=== PATIENT | female | born 1945 | race Caucasian/White ===

== ENCOUNTER 2016-11-09 11:00 | Inpatient (IN) | payer MEDICARE, OTHER ==
[~2016-11-09] VITALS: Ht 154.9 cm; Wt 129.3 kg
--- NOTE | ~2016-11-09 | DS ---
PATIENT'S NAME: ROGER MUÑOZ [facility] AGE: 71 Y [address] ROOM: [place] [address] LOCATION: [facility] ADMIT DATE: 11/16/2016 Discharge Summary DISCHARGE DATE: 11/18/2016 FAMILY PHYSICIAN: Jez Mascorro MD ATTENDING PHYSICIAN: Sung Mcnair PRIMARY DIAGNOSIS: Degenerative joint disease of the left knee. SECONDARY DIAGNOSES: 1. Gastroesophageal reflux disease. 2. Hyperlipidemia. 3. Morbid obesity. 4. Hypertension. 5. Chronic kidney disease, stage 3. 6. Hyperparathyroidism. 7. Obstructive sleep apnea. 8. Osteoporosis. PROCEDURE PERFORMED: Left total knee arthroplasty. HISTORY: The patient is a 71-year-old female, who presents with advanced left knee degenerative joint disease and associated severely compromised activities of daily living. The patient has decided to proceed with total knee arthroplasty after having been thoroughly counseled regarding the risks, benefits, limitations and alternatives. Please refer to the outpatient clinic notes and admission history and physical for this patient. HOSPITAL COURSE: The patient underwent a left total knee arthroplasty on 11/16/2016 without complications. Spinal anesthesia plus adductor canal block plus periarticular local anesthesia was utilized. The patient received 24 hours of perioperative prophylactic antibiotics and remained hemodynamically stable, neurovascularly intact throughout the entire hospital course. The postoperative prophylactic deep venous thrombosis prophylaxis consisted of Lovenox 30 mg, early mobilization and pneumatic compression devices. Daily physical therapy for gait training, transfer training range of motion and quadriceps isometric exercises were received. The patient progressed well in physical therapy. On the date of discharge, 11/18/2016, the incision at the knee was healing well and showed no signs of infection. DISPOSITION: Home. DISCHARGE ACTIVITY: The patient is to bear weight as tolerated with range of motion and quadriceps isometric exercises as instructed. The operative extremity is to be elevated at least 90% of the day. There is to be sterile 4x4 gauze dressings to the incision daily. Dr. Mcnair is to be notified PATIENT'S NAME: ROGER MUÑOZ [facility] AGE: 71 Y [address] ROOM: [place] [address] LOCATION: [facility] ADMIT DATE: 11/16/2016 Discharge Summary DISCHARGE DATE: 11/18/2016 FAMILY PHYSICIAN: Jez Mascorro MD ATTENDING PHYSICIAN: Sung Mcnair immediately if there is any increased pain, fevers, chills erythema or drainage. The patient was told to perform no range of motion exercises until the follow-up appointment. DISCHARGE MEDICATIONS: 1. Lovenox 30 mg subcu twice daily for 14 days for postoperative DVT prophylaxis. 2. [place] 5/325 mg 1 to 2 tabs p.o. every 4 hours p.r.n. for pain. 3. She was then instructed to continue all her pre-admission medications as directed by her internal medicine physician. FOLLOWUP: Followup appointment is to be with Dr. Mcnair's office on 11/23/2016 for her initial postoperative evaluation with x-rays of the left knee and staple removal at that time. WILFREDO MCGARRY PA-C FOR SUNG MCNAIR MD SMW/modl /[id number] d: 11/23/16 0045 t: 11/23/16 0829, DISCHARGE SUMMARY
--- NOTE | ~2016-11-09 | OR ---
PATIENT'S NAME: ROGER MUÑOZ [facility] AGE: 71 Y [address] ROOM: [place] [address] LOCATION: [facility] ADMIT DATE: 11/16/2016 OR/Procedure Report DISCHARGE DATE: FAMILY PHYSICIAN: Jez Mascorro MD ATTENDING PHYSICIAN: SUNG MCNAIR SURGEON: Sung Mcnair MD WHIP SAWYER: 1. SHABNAM Guzman. 2. Deepak Davila CST/MANAGER PROJECT. DATE OF PROCEDURE: 11/16/2016 PRE-OP DIAGNOSES: 1. Primary degenerative joint disease, left knee. 2. Obesity (5 feet 1 inch tall and 127.3 kg). POST-OP DIAGNOSES: 1. Primary degenerative joint disease, left knee. 2. Obesity (5 feet 1 inch tall and 127.3 kg). OPERATION: Left total knee arthroplasty with computer navigation. ANESTHESIA: Spinal anesthesia plus adductor canal block plus periarticular local anesthesia (ropivacaine with epinephrine and Toradol). ESTIMATED BLOOD LOSS: Less than 20 mL. DRAIN: None. SPECIMEN: None. COMPLICATIONS: None. IMPLANT SYSTEM: Patrick Triathlon Size 2 left posterior stabilized femoral component. Size 1 universal modular tibial baseplate. An 11 mm size 1 posterior stabilized X3 tibial polyethylene insert. A 29 mm oval X3 patella component (triple pegged). INDICATIONS FOR SURGERY: Roger Muñoz is a 71-year-old female who presents with advanced left knee degenerative joint disease and associated severely compromised activities of daily living. The patient has decided to proceed with knee replacement after having been thoroughly counseled regarding the associated risks, benefits, and limitations. We have specifically reviewed the risks and implications of infection, deep venous thrombosis, pulmonary embolism, mortality, neurovascular complications, blood transfusion (and associated potential for disease transmission or transfusion reaction), PATIENT'S NAME: ROGER MUÑOZ [facility] AGE: 71 Y [address] ROOM: [place] [address] LOCATION: [facility] ADMIT DATE: 11/16/2016 OR/Procedure Report DISCHARGE DATE: FAMILY PHYSICIAN: Jez Mascorro MD ATTENDING PHYSICIAN: SUNG MCNAIR stiffness, instability, mechanical deterioration of the components (due to wear and or loosening), and the potential need for revision. We have also emphasized the importance of active involvement and compliance with post- operative physical therapy as a means of optimizing range of motion and functional recovery. Informed consent has been granted. DESCRIPTION OF PROCEDURE: The patient was positioned supine after administration of anesthesia and prophylactic antibiotics. A well-padded pneumatic tourniquet was placed around the left proximal thigh, and the left lower extremity was prepped and draped with vigilant sterile technique. The patient's name as well as the intended operative side and procedure were confirmed with a verbal time-out involving myself, the circulating nurse, the scrub nurse, and the anesthesiologist. Examination under anesthesia demonstrated well-healed inferomedial and inferolateral arthroscopy portal scars. There was a large effusion. There was no erythema. There was no abnormal warmth. There was a very large soft- tissue envelope surrounding the knee, thigh, and calf. This created a significant barrier to full flexion of the knee secondary to impingement between the posterior calf and posterior thigh soft tissues. Range of motion under anesthesia was from full extension to 120 degrees of flexion. There was no ligamentous insufficiency. The left lower extremity was elevated and exsanguinated with an Esmarch wrap, and the pneumatic tourniquet was inflated to 300mmHg. The knee was approached through a longitudinal midline incision. A medial parapatellar arthrotomy was performed and the patella was everted. Examination of the joint space demonstrated a large amount of benign-appearing translucent synovial fluid. There was generalized nonproliferative synovitis. There were no loose bodies. The cruciate ligaments were intact. There was full-thickness loss of articular cartilage involving over 50% of the medial femoral condyle and a 1 x 2 cm diameter region of the medial tibial plateau. There were mild grade 2 degenerative changes at the lateral femoral condyle. There was high-grade partial-thickness articular cartilage loss extending transversely across the equator of the patella. There were intermixed grade 3 and grade 4 degenerative changes at the medial 2/3rd of the femoral trochlea. There was extensive complex degenerative tearing involving the anterior half of the medial meniscus. The lateral meniscus was intact. There were mild grade 3 degenerative changes involving the medial half of the lateral tibial plateau including deep fissuring of the articular cartilage at the medial half of the lateral tibial plateau. Remnants of the menisci and cruciate ligaments were excised. The tydy navigation femoral tracker was pinned in place at the distal aspect PATIENT'S NAME: ROGER MUÑOZ [facility] AGE: 71 Y [address] ROOM: [address] [address] LOCATION: [facility] ADMIT DATE: 11/16/2016 OR/Procedure Report DISCHARGE DATE: FAMILY PHYSICIAN: Jez Mascorro MD ATTENDING PHYSICIAN: SUNG MCNAIR of the femoral trochlea. Absence of motion between the femur and the tracking device was confirmed manually and visually. Femoral osseous landmarks were obtained in order to calibrate the computer navigation system. Landmarks included the center of rotation of the ipsilateral hip, the center-point of the distal femur, the femoral AP axis, 57 points on the medial femoral condyle articular surface, and 57 points on the lateral femoral condyle articular surface. The [employer] computer navigation system was subsequently utilized to position the distal femoral resection block such that the distal femoral resection was performed perfectly perpendicular to the femoral mechanical axis. The distal femoral resection was performed with a [employer] oscillating saw. The [employer] computer navigation tibial tracker was pinned in place at the anterior aspect of the tibial plateau. Absence of motion between the tibia and the tracking device was confirmed manually and visually. Tibial osseous landmarks were obtained in order to calibrate the computer navigation system. Landmarks included the center-point of the tibial plateau, the AP tibial axis, 57 points on the medial tibial plateau articular surface, 57 points on the lateral tibial plateau articular surface, the medial malleolus, and the lateral malleolus. The [employer] computer navigation system was subsequently utilized to position the proximal tibial resection block such that the proximal tibial resection was performed perfectly perpendicular to the tibial mechanical axis. The proximal tibial resection was performed with a [employer] Precision oscillating saw. Perpendicularity of the tibial resection with respect to the tibial shaft axis was reconfirmed by inserting a spacer- block attached to an extramedullary guide kelvin. External rotation of the anterior and posterior femoral resections was set parallel to the epicondylar axis and carefully adjusted in order to create a rectangular flexion gap. The box resection was performed with a reciprocating saw. Anterior and posterior chamfer resections were performed with the oscillating saw. Posterior condyle osteophytes were excised with an osteotome. All other osteophytes were excised with a rongeur. Resection of all remnants of the menisci was reconfirmed. Flexion and extension gaps were confirmed to be symmetric and well balanced with a spacer-block technique. The patella resection was performed with an oscillating saw such that the composite thickness of the reconstructed patella was equivalent to the thickness of the [place] patella. Patella tracking was optimal, and there was no need for a lateral retinacular release. All trial components were removed and all prepared osseous surfaces were thoroughly irrigated with pulsatile saline lavage and dried prior to cementing all three components in a single stage using Patrick Simplex cement containing pre-mixed tobramycin. All extruded excess cement was removed. The entire PATIENT'S NAME: ROGER MUÑOZ [facility] AGE: 71 Y [address] ROOM: [address] [address] LOCATION: [facility] ADMIT DATE: 11/16/2016 OR/Procedure Report DISCHARGE DATE: FAMILY PHYSICIAN: eJz Mascorro MD ATTENDING PHYSICIAN: SUNG MCNAIR joint space was thoroughly inspected and thoroughly irrigated with bacteriostatic pulsatile saline lavage to assure that there was no residual debris of any sort. Final range of motion was from full extension (with no passive hyperextension) to 120 degrees of flexion. Patella tracking was reconfirmed to be optimal. There was good anteroposterior stability at 90 degrees of flexion. There was 0 mm of medial lift-off to valgus stress in full extension. There was 1 mm of lateral lift-off to varus stress in full extension. The arthrotomy was closed with multiple simple and [id number] interrupted #1 Vicryl. Subcutaneous tissues were thoroughly re-irrigated with bacteriostatic pulsatile saline lavage. Subcutaneous tissues were re- approximated with simple buried interrupted #0 Vicryl sutures. The skin was closed with simple buried interrupted 2-0 Vicryl sutures followed by surgical hernando. The dressing consisted of Xeroform gauze, 4x4 gauze, ABD pads and two 6-inch Vincent Wraps. There were no intra-operative complications. It should be noted that the physician's medical assistant prn played an active, integral role throughout this entire operation. By providing expert retraction, they greatly facilitated and expedited safe and effective exposure of the distal femur, proximal tibia and patella for preparation and implantation of the components. They were also actively involved in the patient's positioning, prepping and draping, as well as wound closure. MD DEE ADEN/alexander /[id number] d: 11/16/16 1305 t: 11/29/16 1310, OPERATIVE SUMMARY
[~2016-11-09 11:00] MED LIST: ADVIL200 MG PO; ALEVE220 M1 PO; AMOXICILLIN500 MG PO; CITRACAL+D(315M1 TAB PO; CLARITIN10 MG PO; FLORASTOR250 MG PO; LOSARTAN-HCTZ1 EACH PO; OMNICEF 300MG300 MG PO; TYLENOL EXTRA500 MG PO; VITAMIN D2000 UNI1 PO; WOMEN'S DAILY1 EAC3 PO
[2016-11-09] MEDS ORDERED: COLACE100 MG PO (17:05)
[2016-11-09] MEDS ORDERED: CPAP INH (17:18)
[2016-11-18] MEDS ORDERED: LOVENOX 3030 MG/0.3 SUB-Q (14:14)
[2016-11-18] MEDS ORDERED: MIRALAX17 GM PO (14:15)
[2016-11-18] MEDS ORDERED: NORCO 5-325 TA1 EACH PO (14:16)
== END 2016-11-18 17:15 | disposition disaster alternative care site (69) | DRG 470 ==
LOC: G3N 11-16 05:03
PROVIDERS: ADMIT Orthopaedic Surgery
PROC: 0SRD0J9 Replacement of Left Knee Joint with Synthetic Substitute, Cemented, Open Approach (ICD-10-PCS; principal; 2016-11-16)
DX: M17.12 Unilateral primary osteoarthritis, left knee (principal); Z68.43 Body mass index [BMI] 50.0-59.9, adult; N18.3 Chronic kidney disease, stage 3 (moderate); E21.3 Hyperparathyroidism, unspecified; E66.01 Morbid (severe) obesity due to excess calories; E78.5 Hyperlipidemia, unspecified; G47.33 Obstructive sleep apnea (adult) (pediatric); K21.9 Gastro-esophageal reflux disease without esophagitis; I12.9 Hypertensive chronic kidney disease with stage 1 through stage 4 chronic kidney disease, or unspecified chronic kidney disease; Z86.718 Personal history of other venous thrombosis and embolism; Z79.01 Long term (current) use of anticoagulants; J30.9 Allergic rhinitis, unspecified; G43.909 Migraine, unspecified, not intractable, without status migrainosus
CPT/HCPCS: C1713; C1776; J0690; J1100; J1650; J1885; J2001; J2405; J2795; J7050; J7120

== ENCOUNTER 2016-12-19 20:21 | Emergency (ER) | payer MEDICARE, OTHER ==
--- NOTE | ~2016-12-19 | ER ---
PATIENT'S NAME: ROGER MUÑOZ [facility] AGE: 71 Y [address] ROOM: [place] [address] LOCATION: ED ADMIT DATE: 12/19/2016 ER/Outpatient Report DISCHARGE DATE: 12/19/2016 FAMILY PHYSICIAN: Jez Mascorro MD ATTENDING PHYSICIAN: Chelsi Browning Arrival Time: 2024 hours. Encounter Time: 2030 hours. SUBJECTIVE: Chief Complaint: "Pneumonia"-like cough. HISTORY OF PRESENT ILLNESS: The patient is a pleasant well-appearing 71-year-old female, in no acute distress complaining of a cough for the last 2-3 days. Complains of upper respiratory congestion and postnasal drip as well. Cough is productive of clear sputum and occurs in fits. It has been keeping her up at night whenever she lies supine. Denies fever, chills, or sweats. Denies chest pain or shortness of breath. She does state she has a little bit of a rattly sensation in her chest. Pertinent history includes a left total knee that was performed a little over a month ago by Dr. Jerez without complication. She was instructed by Dr. Jerez to come in right away should she get sick at all over the next couple months. She presents to the ER via private auto. PERTINENT REVIEW OF SYSTEMS: All systems reviewed by me are negative unless otherwise stated in the HPI. PAST MEDICAL HISTORY: Hypertension. PAST SURGICAL HISTORY: Left knee replacement, hysterectomy, cholecystectomy, and parathyroidectomy. ALLERGIES: NO KNOWN DRUG ALLERGIES. MEDICATIONS: Stated by the patient with losartan, but could not recall any others. Please see nursing note for further detail. SOCIAL HISTORY: Nonsmoker. PHYSICAL EXAMINATION: VITAL SIGNS: Height 5 feet 0 inch, weight 126.8 kilos, blood pressure 131/82, PATIENT'S NAME: ROGER MUÑOZ [facility] AGE: 71 Y [address] ROOM: [place] [address] LOCATION: ED ADMIT DATE: 12/19/2016 ER/Outpatient Report DISCHARGE DATE: 12/19/2016 FAMILY PHYSICIAN: Jez Mascorro MD ATTENDING PHYSICIAN: Chelsi Browning pulse 94 and regular, respirations 18 and unlabored, temperature 98.4 degrees Fahrenheit taken tympanically, SpO2 94% on room air. Current pain is 0/10. GENERAL: The patient is obese and in no acute distress. Calm. Alert and oriented to person, place, and time. HEENT: Head is atraumatic and normocephalic. Eyes: Conjunctivae are clear bilaterally. No discharge. Pupils are PERRLA bilaterally. EOM at 5 bilaterally. No nystagmus. Ears are patent bilaterally. Tympanic membranes with good light reflex bilaterally. Nose shows red turbinates that are moderately swollen. Clear drainage. Throat with midline uvula. Copious postnasal drip. No exudates, erythema, or tonsillar hypertrophy. NECK: Supple and without lymphadenopathy. Trachea midline. No JVD. LUNGS: Clear to auscultation outside of some diffuse rhonchi in the bases bilaterally. No wheezes, stridor, or crackles. Normal respiratory effort. HEART: Regular rate and rhythm. No S3, S4, or extra sounds. SKIN: [place], warm, and dry. LAB WORK: CBC: White blood cells 7.1, red blood cells 4.58, hemoglobin 14.4, hematocrit 42.1. MCV 91.3, MCH 31.4, MCHC 34.2, RDW 13.2, platelets 251, MPV 9.8. Auto diff negative. RADIOLOGY: One-view chest x-ray shows well-expanded lungs. There is some mild atelectasis in the bases bilaterally. Some very mild hilar lymphadenopathy and central bronchitis. Discussed results with the patient. ASSESSMENT: 1. Acute maxillary sinusitis. 2. Bronchitis. PLAN: We will start the patient on a Z-Jeff for the next 5 days as well as some cough syrup to manage nighttime cough aggravation. The patient agreeable to this plan. If not gradually improving over the next 3-5 days, would like her to follow up with her regular care provider, or sooner if worsening. The patient agreeable to this plan. Take all medications as prescribed. Discussed med risks, side effects, and benefits in detail with the patient. Get plenty of rest and liquids. Take Tylenol or ibuprofen as directed for fever or discomfort. Return to the emergency department or primary care provider if symptoms persist or worsen. The patient discharged home to the care of her son who was present in room. He is also the ride home for her. Stable and improved status. PATIENT'S NAME: ROGER MUÑOZ [facility] AGE: 71 Y [address] ROOM: [place] [address] LOCATION: [facility] ADMIT DATE: 12/19/2016 ER/Outpatient Report DISCHARGE DATE: 12/19/2016 FAMILY PHYSICIAN: Jez Mascorro MD ATTENDING PHYSICIAN: Chelsi Browning LIVIER PACHECO PA-C FOR CHELSI BROWNING MD SMR/modl /[id number] d: 12/20/16 0114 t: 12/22/16 0509, OUTPATIENT REPORT
[~2016-12-19 20:21] MED LIST changes: +COLACE100 MG PO; +CPAP INH; +LOVENOX 3030 MG/0.3 SUB-Q; +MIRALAX17 GM PO; +NORCO 5-325 TA1 EACH PO
[2016-12-19 20:59] LABS: BASOPHIL % 0.4 %; EOSINOPHIL # 0.4 K/uL (0.0-0.5); HEMATOCRIT 42.1 % (33.0-46.0); HEMOGLOBIN 14.4 g/dL (10.0-15.0); IMMATURE GRANULOCYTE % 0.3 %; LYMPHOCYTE # 2.5 K/uL (0.8-4.0); LYMPHOCYTE % 35.6 %; MCH 31.4 pg (27.0-34.0); MCHC 34.2 gm/dL (32.0-36.5); MCV 91.9 fl (83.0-98.0); MONOCYTE # 0.6 K/uL (0.0-1.0); MPV 9.8 fl (9.4-12.4); NEUTROPHIL # (ANC) 3.6 K/uL (1.8-7.8); NEUTROPHIL % 50.7 %; NRBC % 0 /100WBC (0-0.00); PLATELET COUNT 251 K/uL (150-450); RBC 4.58 M/uL (3.50-5.50); RDW-CV 13.2 % (11.9-14.6); WBC 7.1 K/uL (4.0-11.0)
== END 2016-12-19 21:43 | disposition disaster alternative care site (69) ==
LOC: GMED 20:21
PROVIDERS: Physician Assistant
DX: J01.00 Acute maxillary sinusitis, unspecified (principal); J40 Bronchitis, not specified as acute or chronic; I10 Essential (primary) hypertension; Z90.710 Acquired absence of both cervix and uterus; Z90.49 Acquired absence of other specified parts of digestive tract; Z90.89 Acquired absence of other organs; Z98.890 Other specified postprocedural states; Z79.899 Other long term (current) drug therapy